=== PATIENT | female | born 1975 | race Caucasian/White ===

== ENCOUNTER 2022-01-29 15:19 | Outpatient (CLI) | payer OTHER, SELFPAY ==
[2022-01-29 12:24] LABS: Chloride* 104 mmol/L (96-114); Potassium* 4.8 mmol/L (3.6-5.1); Sodium* 140 mmol/L (135-149)
[2022-01-29 12:26] LABS: Bilirubin Total* 0.4 mg/dL (0.1-1.5); Carbon Dioxide* 31 mmol/L (20-32); Cholesterol* 206 mg/dL (90-199); Creatinine* 0.9 mg/dL (0.5-1.5); Estimated Glomerular Filt Rate 81 ml/min; Total Protein* 6.5 g/dL (6.0-8.3)
[2022-01-29 12:27] LABS: Alanine Aminotransferase* 13 U/L (4-35); Alkaline Phosphatase* 56 U/L (40-150); Aspartate Amino Transferase* 23 U/L (12-35); Blood Urea Nitrogen* 16 mg/dL (5-24); Calcium* 9.1 mg/dL (8.4-10.6); Glucose* 77 mg/dL (60-115); HDL Cholesterol* 59 mg/dL (>=50); LDL Cholesterol Calculated 129 mg/dL (<100); Triglycerides* 90 mg/dL (40-149)
== END 2022-01-29 15:20 | disposition home or self-care (01) ==
PROVIDERS: PCP Physician Assistant Medical; Visit Provider Physician Assistant Medical
DX: E03.9 Hypothyroidism, unspecified (principal); I10 Essential (primary) hypertension
CPT/HCPCS: 80053; 80061; 84443

== ENCOUNTER 2022-05-13 15:06 | Outpatient (CLI) | payer OTHER, SELFPAY ==
--- NOTE | 2022-05-13 15:30 | MR_ITS ---
[address] [address] Phone:?[phone] Fax:?[phone] Referring Physician Information: Rodriguez Rivers M.D. [address] [facility] [address] Phone:?[phone] Fax:?[phone] Patient:Federico Roca D.O.B:?1975 Sex:?Female Phone:?[phone] [facility] MRN:?[id number] Exam Date:?05/13/2022 ? EXAM: MRI OF THE LEFT SHOULDER CLINICAL INFORMATION: The patient is a 46-year-old with left shoulder pain. Evaluate for rotator cuff tear. PRIOR SURGERY: None reported. COMPARISON STUDIES: There are no prior studies available for comparison. TECHNICAL INFORMATION: Using a 1.5T MR scanner and a localizing shoulder surface coil: 3.0 mm?coronal obliques: PD, T2, STIR 3.0 mm?sagittal obliques: PD, T2 3.0 mm?axials: PD, T2 FINDINGS: Articular/Extraarticular collections: Effusion: Mild to moderate. Subacromial/subdeltoid: Mild to moderate fluid is seen within the subacromial/subdeltoid bursa, in keeping with changes of bursitis. Subcoracoid: No evidence for bursitis. Osseous structures: Proximal humerus: Cortical irregularity can be seen involving the greater tuberosity region with mild subcortical cystic change. The findings are in keeping with the rotator cuff pathology discussed below. There is no evidence for greater or lesser tuberosity fracture. No Hill-Sachs or reverse Hill-Sachs lesion is identified. Glenoid: No acute bony abnormality of the glenoid fossa or glenoid neck can be seen. Acromioclavicular joint: Mild to moderate changes of acromioclavicular joint arthrosis are present. Coracoacromial arch: Acromion morphology: Type II. No evidence for os acromiale. Acromiohumeral space: Mildly narrowed. Coracohumeral space: Mildly narrowed. Rotator cuff and deltoid: Supraspinatus: Moderate changes of supraspinatus tendinosis are present. There is a superimposed full-thickness tear of the anterior and distal tendon fibers seen on sagittal series 8 image 6 and on coronal series 6 image 8. The area of tearing measures 10 mm in mediolateral dimension and 11 mm in anteroposterior dimension. No atrophic changes of the supraspinatus muscle belly are identified. Infraspinatus: Moderate infraspinatus tendinosis can be seen. There is no evidence for full or partial-thickness tearing. No atrophic changes of the infraspinatus muscle belly are present. Teres minor: No evidence for tendinosis, tearing, or associated muscle belly atrophy. Subscapularis: Moderate subscapularis tendinosis can be seen. There is no evidence for full or partial-thickness tearing. No atrophic changes of the subscapularis muscle belly are noted. Deltoid: No evidence for strain or tearing. Biceps tendon: The intra-articular and biceps sulcus portions of the biceps tendon are normal. There is no evidence for rupture, dislocation, or subluxation. Glenohumeral joint and labrum: Articular Cartilage: Chondromalacia and chondral thinning along the articular surfaces of the glenohumeral articulation can be seen. No osteoarthritic changes are identified. Labrum: The anterior, posterior, superior, and inferior portions of the labrum appear intact. No evidence for paralabral ganglion cyst formation can be seen. Capsular Soft Tissues: Nonspecific thickening of the capsular structures of the glenohumeral articulation can be seen in the region of the axillary recess and rotator cuff interval. The findings may relate to changes of adhesive capsulitis. CONCLUSION: 1. Moderate supraspinatus, infraspinatus, and subscapularis tendinosis with superimposed full-thickness tearing of the anterior and distal supraspinatus tendon fibers as described above. 2. Mild to moderate changes of acromioclavicular joint arthrosis. 3. No definite injuries to the glenoid labrum or long head of the biceps can be seen. 4. Mild to moderate glenohumeral joint effusion and mild to moderate subacromial/subdeltoid bursitis. 5. Chondromalacia and chondral thinning along the articular surfaces of the glenohumeral articulation. 6. Nonspecific capsular thickening, possibly related to adhesive capsulitis. AEC Electronically signed on 05/14/2022 8:08:00 AM by Kofi Parrish M.D.
== END 2022-05-13 15:07 | disposition home or self-care (01) ==
LOC: MRI 15:09
PROVIDERS: PCP Physician Assistant Medical; Visit Provider Orthopaedic Surgery Sports Medicine
DX: M25.512 Pain in left shoulder (principal); M75.102 Unspecified rotator cuff tear or rupture of left shoulder, not specified as traumatic; M19.012 Primary osteoarthritis, left shoulder; M25.412 Effusion, left shoulder; M94.212 Chondromalacia, left shoulder
CPT/HCPCS: 73221

== ENCOUNTER 2022-06-16 08:16 | Day surgery (SDC) | payer OTHER, SELFPAY ==
[2022-06-16] VITALS (15 sets, daily range): BP systolic 107–138; BP diastolic 69–100; PULSE 7–84; RESP 16–20; TEMP 36.1–36.3; O2SAT 89–98; BMI 32.7
[2022-06-16] MEDS: LACTATED RINGERS 1000 ML 1,000 ML 100 ML IV (08:20)
[2022-06-16] MEDS: SODIUM CHLORIDE 0.9 % (FLUSH) 10 ML SYRINGE IVF (09:02)
--- NOTE | 2022-06-16 09:40 | SUR.PREOP ---
TIME?OUT:?0940 PT/RN/MDA?VERIFICATION?OF?SURGICAL?SITE,?PROCEDURE,?AND?CONSENT OBTAINED?PRIOR?TO?INVASIVE?PROCEDURE.
[2022-06-16] MEDS: fentaNYL 100 MCG/2 ML inj IVP (09:41)
[2022-06-16] MEDS: MIDAZOLAM HCL 1 MG/ML inj IVP (09:41)
--- NOTE | 2022-06-16 09:45 | P.NB_ITS ---
Nerve Block Nerve Block Time Seen by Provider: 09:44 Date Seen: 06/16/22 Type of block requested by surgeon for post-operative analgesia: supraclavicular Side: left Time out performed: Yes Verification of patient name: Yes Verification of date of : Yes Site marking: site marked Name of person performing procedure: Adrian Assistants, if any: Maycol Continuous monitoring Was continuous monitoring of O2 sat, B/P, monitoring and evaluation advisor, recorded every 15 minutes?: Yes Procedure Checklist: sterile prep, needles and gloves Ultrasound guided. Images saved: Yes Medications given in 5ml increments after negative aspiration: Ropivicaine %: 0.5 mL: 20 Needle gauge: 22 Decadron (mg): 10 Precedex (mcg): 25 Patient tolerated procedure well: Yes Block Charges Block Charge (with Pro Fee): Brachial Plexus Use of Ultrasound Machine for Block: Yes- US Guidance/pain block
--- NOTE | 2022-06-16 09:46 | W.ANESCHARGE ---
Anesthesia Charges Start Date/Time Anesthesia Start Date: 06/16/22 Anesthesia Start Time: 09:56 Stop Date/Time Anesthesia Stop Date: 06/16/22 Anesthesia Stop Time: 12:28
[2022-06-16] MEDS: CEFAZOLIN 2 GM in 0.9 % SODIUM CHLORIDE Mini-bag 100 ML IVPB (10:47)
--- NOTE | 2022-06-16 12:06 | PM.ORPRC ---
Procedure Note Date of procedure: 06/16/22 Procedure: PREOPERATIVE DIAGNOSES: 1. Left shoulder rotator cuff tear. 2. Left shoulder subacromial impingement syndrome. POSTOPERATIVE DIAGNOSES: 1. Left shoulder rotator cuff tear - upper border subscapularis, full-thickness supraspinatus crescent type tear 2. Left shoulder AC degenerative joint disease, primary, moderate 3. Left shoulder anterior and superior degenerative labral fraying and tearing 4. Left shoulder subacromial impingement syndrome. NAME OF OPERATION: 1. Left shoulder arthroscopic rotator cuff repair. 2. Left shoulder arthroscopic distal clavicle excision 3. Left shoulder arthroscopic limited glenohumeral debridement 4. Left shoulder arthroscopic bursectomy, subacromial decompression/partial acromioplasty. SURGEON: Rodriguez Rivers MD STUDENT NURSE: David Levin PA-C. Of note, a skilled insurance sales assistant was critical for this case to aide in patient positioning, suture manipulation, arm positioning, instrument positioning, and closure. ANESTHESIA: General plus preoperative supraclavicular block. EBL: 25 mL IMPLANTS: Arthrex 4.75 mm BioComposite SwiveLock suture anchor (x1); 2.6 mm knotless FiberTak RC (x2); 5.5 mm BioComposite SwiveLock suture anchor (x2) COMPLICATIONS: None evident INDICATIONS: The patient is a pleasant, 47-year-old female who has experienced left shoulder pain that has been increasing in recent time. Physical exam and imaging were consistent with a rotator cuff tear. Given their findings, as well as the weakness and pain, and inadequate response to nonoperative management, recommendation was made for surgery. FINDINGS: Exam under anesthesia revealed stable shoulder with excellent range of motion. The diagnostic arthroscopy revealed relatively healthy chondral surfaces of the glenohumeral joint. The Subscapularis tendon was torn from its upper border with mild retraction. The long head of the biceps tendon was intact. The superior rotator cuff tendon was found to be torn full-thickness through the entire supraspinatus with a crescent type tear. The labrum was degeneratively frayed in the anterior and superior aspects. No loose bodies were identified within the pouch or subscapularis recess. PROCEDURE: Following a thorough discussion of risks, benefits, and alternatives, consent was obtained and the left shoulder was marked. The patient was brought to the operating room and placed supine on the operating table. Induction of anesthesia was completed after preoperative supraclavicular block was administered in preop holding. Appropriate time out was performed identifying proper patient, site, and procedure. 2 g IV Ancef was administered within 1 hour of incision preoperatively. The left upper extremity was prepped and draped in the appropriate sterile fashion using ChloraPrep prep. This was after the patient was positioned in the beach chair with their head in neutral alignment and all bony prominences well padded. The shoulder was insufflated with 20mL of normal saline via an 18g spinal needle from a posterior approach. An 11 blade skin incision allowed a blunt trochar to be inserted and diagnostic arthroscopy to be performed with the findings as noted above. An anterior portal was established with an outside in technique. This allowed the probe to be inserted and confirm the diagnostic arthroscopic findings. The shaver was then inserted and allowed debridement of the anterior and superior labrum. Following this, the upper border subscapularis was repaired after debriding the lesser tuberosity with the shaver and [place] cautery. Subscapularis was captured in horizontal mattress fashion with a fiber tape suture. The tails were brought to a single anchor in the lesser tuberosity with excellent reapproximation of the subscap tendon and good excursion/tension. Thereafter, the subacromial space was entered. Here, a complete bursectomy and partial acromioplasty/subacromial decompression was performed with a combination of radiofrequency ablator, the shaver, and a 5.5 mm bur. Additionally, distal clavicle excision was performed with the bur. 8 mm of distal clavicle was resected based on the width of our bur. Further inspection of the supraspinatus and infraspinatus rotator cuff was performed. This identified the tear as noted above. The margins of the tear were debrided, and the greater tuberosity was debrided with a combination of the apollo cautery, shaver, and bur on reverse setting. [After gentle decortication, a speed bridge configuration with a knotless medial max was engaged. 2 medial FiberTak RC anchors were placed and the sutures were passed with a fiber link. The tail from each of the tapes were then brought to a lateral row anchor. Finally, the knotless mechanism was completed with final tensioning on the medial footprint compression location with excellent reapproximation of the rotator cuff to the greater tuberosity. Prior to anchor operator and truck driver removal, the eyelet sutures were tugged on for each anchor and found that the anchor had excellent stability within the bone. The shoulder was placed through range of motion and found to be stable. The rotator cuff was re-probed and found to be stable. Instruments were removed. Excess fluid was drained, closure performed with 4-0 Monocryl and Steri-Strips. Dressings were applied. Sling was applied. The patient was awoken from anesthesia and transferred to the PACU in stable condition. A skilled insurance sales assistant was critical for this case to aid in patient positioning, limb positioning, skill to manipulate arthroscopic instruments and camera, suture management, patient safety, and closure. PLAN: 1. Elbow, forearm, wrist and digit range of motion of operative extremity as tolerated. 2. Encouraged ice. 3. Percocet for pain as needed. 4. Sling at all times except for ROM and showering. 5. Follow up with PA visit in 1-2 weeks for wound check. Initiate physical therapy following that visit for passive range of motion. Initiate active assisted range of motion at 3 weeks. May do pendulums now.
--- NOTE | 2022-06-16 13:30 | W.ANESCHARGE ---
Anesthesia Charges Start Date/Time Anesthesia Start Date: 06/16/22 Anesthesia Start Time: 09:56 Stop Date/Time Anesthesia Stop Date: 06/16/22 Anesthesia Stop Time: 12:28
== END 2022-06-16 14:06 | disposition home or self-care (01) ==
PROVIDERS: PCP Physician Assistant Medical; Visit Provider Orthopaedic Surgery Sports Medicine
PROC: (CPT 29805; principal; 2022-06-16 09:30)
DX: M75.122 Complete rotator cuff tear or rupture of left shoulder, not specified as traumatic (principal); M75.42 Impingement syndrome of left shoulder; M19.012 Primary osteoarthritis, left shoulder; S43.432A Superior glenoid labrum lesion of left shoulder, initial encounter; G89.18 Other acute postprocedural pain
CPT/HCPCS: 29827; 29826; 29822; 29824; 01630; 64415; 76942; C1713; J0330; J0690; J1100; J2250; J2405; J2704; J2795; J3010; J7120; L3670

== ENCOUNTER 2023-06-06 09:08 | Outpatient (CLI) | payer OTHER, SELFPAY ==
--- OUTSIDE RECORDS SUMMARY | 2023-06-08 11:30 | XMS_ITS | Clinical Summary ---
Author Name Unknown Organization [facility] Address [place], [place] [address] Care Team Providers Care Support Coordinator Name Role Phone Brandy Webster KILO Primary Care Provider [phone] Allergies Active Allergy Reactions Criticality Noted Date Comments Ranitidine 12/16/2005 Medications Medication Sig Dispensed Refills Start Date End Date Status omeprazole (PRILOSEC) 20 mg Delayed-Release capsule Take 1 capsule by mouth 2 times daily before meals. 0 09/25/2015 Active hydroCHLOROthiazide 12.5 mg tablet Take 12.5 mg by mouth once daily. 3 09/09/2018 Active levothyroxine (SYNTHROID) 75 mcg tablet Take 75 mcg by mouth before breakfast. 2 08/12/2018 Active losartan (COZAAR) 100 mg tablet Take 100 mg by mouth once daily. 3 09/11/2018 Active metoprolol succinate (TOPROL XL) 25 mg Sustained-Release tablet Take 25 mg by mouth once daily. 1 09/22/2018 Active VIIBRYD 40 mg tablet Take 40 mg by mouth once daily. 0 08/21/2018 Active zolpidem (AMBIEN) 10 mg tablet Take 5-10 mg by mouth at bedtime if needed. 0 2018 Active hydrOXYzine HCl (ATARAX) 25 mg tablet Take 25-50 mg by mouth every 6 hours if needed for Anxiety. Active polyethylene glycol (MIRALAX) 17 g powder for solutionIndications:Co nstipation, unspecified constipation type Take 17 g by mouth once daily. 0 10/02/2018 Active buPROPion (WELLBUTRIN XL) 300 mg Extended-Release tabletIndications:MDD (major depressive disorder), recurrent severe, without psychosis (HC) Take 1 tablet by mouth once daily. 30 tablet 10/06/2018 Active Active Problems Problem Noted Date Diagnosed Date MDD (major depressive disord er), recurrent severe, without psychosis 10/03/2018 Gastroesophageal reflux disease with esophagitis 09/26/2015 Overview: EGD 09/2015 reflux Tobacco use disorder 08/03/2006 Obesity, unspecified 01/03/2006 CONTRACEPTIVE PRESCRIPTION, ORAL AGENT 1 Resolved Problems Problem Noted Date Diagnosed Date Resolved Date DISORDER, TOBACCO USE 02/01/20012006 Immunizations Name Administration Dates Next Due Td (Age >=7 Years) 09/14/1996 Family History Medical History Relation Name Comments Thyroid Disease Brother Alcohol/Drug Father etoh in past Allergies Mother Asthma Mother Cancer Mother mother: Non Hod gkin's lymphoma~ Diabetes Mother Thyroid Disease Mother Hypertension Paternal Grandfather Relation Name Status Comments Brother Father Mother Paternal Grandfather Social History Tobacco Use Types Packs/Day Years Used Date Smoking Tobacco: Every Day Cigarettes 0.3 24.7 Started: 10/02/1998 Smokeless Tobacco: Never Tobacco Cessation:Ready to Q uit: No; Counseling Given: No Alcohol Use Standard Drinks/Week Comments Yes 2 (1 standard drink = 0.6 oz pur e alcohol) once monthly Social Connections Answer Date Recorded Frequency of Communication with Friends and Fami ly Not on file 02/14/2021 Financial Resource Strain Answer Date R ecorded Difficulty of Paying Living Expenses Not on file 02/14/2021 Difficulty of Paying Living Expenses Not on file 02/14/2021 Sex and Gender Information Value Date Recorded Sex Assigned at Not on file Gender Identity Not on file Sexual Orientation Not on file Obstetrics History Para Term AB IAB SAB Ectopic Multiple Livin g Live Births 2 1 1 0 1 1 0 0 0 1 Date Outcome GA Total Labor Labor/2nd/3rd Weight Sex Delivery Anes PTL Avelina A1 A5 Name Cl in IAB Term Last Filed Vital Signs Vital Sign Reading Time Taken Comments Blood Pressure 127/91 05/28/2020 12:53 PM CDT Pulse 64 05/28/2020 12:53 PM CDT Temperature 36.5 ??C (97.7 ??F) 05/28/2020 12:53 PM C DT Respiratory Rate 18 05/28/2020 12:53 PM CDT Oxygen Saturation 98% 05/28/2020 12:53 PM CDT Inhaled Oxygen Concentration - - Weight 74.8 kg (165 lb) 05/28/2020 12:53 PM CDT Height 171.5 cm (5' 7.5) 05/28/2020 12:53 PM CD T Body Mass Index 25.46 05/28/2020 12:53 PM CDT Plan of Treatment Health Maintenance Due Date Last Done Comments Tdap 1988 Depression screening for age 12+ 1989 HIV for age 15-65 1992 Hepatitis C screening for age 18-79 06/06/1995 Tetanus booster 09/14/2006 09/14/1996 BMI (ht and wt on same day) for age 18+ 09/24/2016 09/25/2015 Pap test for age 21-65 07/26/2020 8, 07/26/2017, 01/03/2006, Additional history exists Colonoscopy through age 75 2022 Lipids for age 45-75 2022 04/02/2002, 04/02/19 03 Mammogram for age 45-75 2022 COVID-19 vaccine series (2022-24 season) 2022 Influenza for age 9-49 10/16/2023 Pneumococcal series for age 6-64 Aged Out No longer eligible based on patient's age to complete this topic Procedures Procedure Name Priority Date/Time Associated Diagnosis Comments MOTORCOACH DRIVER THIN PREP PAP SCREEN IMAGED Routine 07/26/2017 12:00 PM CDT CHOLESTEROL,TOTAL Routine 04/02/2002 8:0 5 AM MANAGER REPORTING from Last 3 Months or Most Recently Relevant to Health Maintenance Results * MOTORCOACH DRIVER THIN PREP PAP SCREEN IMAGED (07/26/2017 12:00 PM CDT) Case Report Gynecologic Cytology Report ? Case: [id number] ? Authorizing Provider: ??Brandy Webster PA-C ?Collected: ? 07/26/2017 1200 ? First Screen: ?Lois Pat ?Received: ?07/28/2017 1148 ? Specimen: ?MOTORCOACH DRIVER ThinPrep Vial Screening, Vaginal Cuff ? 08/04/2017 11:38 AM [facility] INTERPRETATION/ RESULT NEGATIVE FOR INTRAEPITHELIAL LESION OR MALIGNANCY (NIL) (none) 08/04/2017 11:38 AM [facility] IMEN ADEQUACY Satisfactory for evaluation No endocervical component seen 08/04/2017 11:38 AM [facility] HPV REQUEST HPV and PAP 08/04/2017 11:38 AM [facility] Last Pap Date 04/02/2010 08/04/2017 11:38 AM [facility] Last Pap Result NIL 8 11:38 AM [facility] Automated Review Successful 08/04/2017 11:38 AM [facility] Comment:Specimen processed s uccessfully by automated head tennis professional device, ThinPrep Imaging System, [employer] ANCILLARY TESTING MOTORCOACH DRIVER HPV Ordered, Please see separate report 08/04/2017 11:38 AM [facility] Note The pap test is a screening technique, not a diagnostic procedure. ??It is used primarily to screen for squamous cancers and precursor lesions. ??Published studies have shown that it is subject to both false negative and false positive results. ??The pap test should not be used as the sole means to diagnose or exclude pre-malignant and malignant lesions. Cytology is screened and interpreted at [facility] - [address], [place] [address] and [facility] - [address]; [place] [address] and [facility] - [address]; [place] [address] and [facility] [address]; [place] [address] 08/04/2017 11:38 AM CDT [facility] Other (Vaginal Cuff) 07/26/2017 12:00 PM CDT 07/28/2017 11:48 AM CDT Brandy Webster PA-C PATHOLOGY/CYTOLOGY [facility] [address] [place] [address], [place] * CHOLESTEROL,TOTAL (04/02/2002 8:05 AM MANAGER REPORTING) CHOLESTEROL,TOT AL 167 110 - 199 mg/dL 04/02/2002 8:05 AM MANAGER REPORTING Narrative 07/25/2003 5:06 PM CDT Ordered by an unspecified provider. Other Clinical Staff CHEMISTRY from Last 3 Months or Most Recently Relevant to Health Maintenance Advance Directives * Full Code (Latest Code Status on File) Date Activated Date Inactivated Comments 10/02/2018 1:23 PM 10/06/2018 1:15 PM Question Answer Comments Code Status Discussion: Not Discussed * Full Code Date Activated Date Inactivated Comments 10/01/2018 5:37 AM 10/02/2018 12:05 PM Care Teams Support Coordinator Relationship Specialty Start Date End Date Brandy Webster PA-C [address] [place] [address] PCP - General Physician Decal Applier 09/25/15
--- OUTSIDE RECORDS SUMMARY | 2023-06-08 11:30 | XMS_ITS | Referral Summary ---
Author Name Unknown Organization [facility] Address [address] [place] [address] Care Team Providers Care Cemetery Manager Name Role Phone No Ref-Primary, Physician Primary Care Provider Allergies Active Allergy Reactions Criticality Noted Date Comments Ranitidine 12/16/2005 Medications No known medications Active Problems No known active problems Social History Tobacco Use Types Packs/Day Years Used Date Smoking Tobacco: Former Smokeless Tobacco: Never Tobacco Cessation:Counseling Given: Yes Sex and Gender Information Value Date Recorded Sex Assigned at Not on file Gender Identity Not on file Sexual Orientation Not on file Last Filed Vital Signs Vital Sign Reading Time Taken Comments Blood Pressure - - Pulse - - Temperature - - Respiratory Rate 14 03/18/2017 11:29 AM BOAT ENGINE MECHANIC Oxygen Saturation - - Inhaled Oxygen Concentration - - Weight 99.8 kg (220 lb) 03/18/2017 11:29 AM BOAT ENGINE MECHANIC Height 170.2 cm (5' 7) 03/18/2017 11:29 AM BOAT ENGINE MECHANIC Body Mass Index 34.46 03/18/2017 11:29 AM BOAT ENGINE MECHANIC Plan of Treatment Not on file Care Teams Cemetery Manager Relationship Specialty Start Date End Date No Ref-Primary, Physician PCP - General 03/11/17
--- OUTSIDE RECORDS SUMMARY | 2023-06-08 11:30 | XMS_ITS | Clinical Summary ---
Author Name Unknown Organization [facility] Address [address] [place] [id number] Care Team Providers Care Gas Appliance Servicer Name Role Phone No Ref-Primary, Physician Primary [...] - Respiratory Rate 14 03/18/2017 11:29 AM SHOE SEWING MACHINE OPERATOR AND TENDER Oxygen Saturation - - Inhaled Oxygen Concentration - - Weight 99.8 kg (220 lb) 03/18/2017 11:29 AM SHOE SEWING MACHINE OPERATOR AND TENDER Height 170.2 cm (5' 7) 03/18/2017 11:29 AM SHOE SEWING MACHINE OPERATOR AND TENDER Body Mass Index 34.46 03/18/2017 11:29 AM SHOE SEWING MACHINE OPERATOR AND TENDER Plan of Treatment Not on file Care Teams Gas Appliance Servicer Relationship Specialty Start Date End Date No Ref-Primary, Physician PCP - General 03/11/17
== END 2023-06-06 09:09 | disposition home or self-care (01) ==
LOC: NFLDREF 06-08 11:28
PROVIDERS: PCP Physician Assistant Medical; Referring Provider Physician Assistant Medical; Visit Provider Physician Assistant Medical
DX: E03.9 Hypothyroidism, unspecified (principal); I10 Essential (primary) hypertension; E66.9 Obesity, unspecified; Z13.220 Encounter for screening for lipoid disorders
CPT/HCPCS: 80053; 80061; 84443

== ENCOUNTER 2023-06-20 09:35 | Outpatient (CLI) | payer OTHER, SELFPAY ==
--- OUTSIDE RECORDS SUMMARY | 2023-06-20 09:37 | XMS_ITS | Clinical Summary ---
Author Name Unknown Organization [facility] Address [address] [place] [address] Care Team Providers Care Education Manager Name Role Phone No Ref-Primary, Physician [...] - Respiratory Rate 14 03/18/2017 11:29 AM RUBBER COVERING MACHINE OPERATOR Oxygen Saturation - - Inhaled Oxygen Concentration - - Weight 99.8 kg (220 lb) 03/18/2017 11:29 AM RUBBER COVERING MACHINE OPERATOR Height 170.2 cm (5' 7) 03/18/2017 11:29 AM RUBBER COVERING MACHINE OPERATOR Body Mass Index 34.46 03/18/2017 11:29 AM RUBBER COVERING MACHINE OPERATOR Plan of Treatment Not on file Care Teams Education Manager Relationship Specialty Start Date End Date No Ref-Primary, Physician PCP - General 03/11/17
--- OUTSIDE RECORDS SUMMARY | 2023-06-20 09:37 | XMS_ITS | Clinical Summary ---
Author Name Unknown Organization [facility] Address [place], [place] [address] Care Team Providers Care Crook Operator Name Role Phone Brandy Webster KILO Primary Care Provider [phone] Allergies Active Allergy Reactions Criticality Noted Date [...] Procedure Name Priority Date/Time Associated Diagnosis Comments DAYCARE TEACHER THIN PREP PAP SCREEN IMAGED Routine 07/26/2017 12:00 PM CDT CHOLESTEROL,TOTAL Routine 04/02/2002 8:0 5 AM HEALTHCARE REPRESENTATIVE from Last 3 Months or Most Recently Relevant to Health Maintenance Results * DAYCARE TEACHER THIN PREP PAP SCREEN IMAGED (07/26/2017 12:00 PM CDT) Case Report Gynecologic Cytology Report ? Case: [id number] ? Authorizing Provider: ??Brandy Webster PA-C ?Collected: ? 07/26/2017 1200 ? First Screen: ?Lois Pat ?Received: ?07/28/2017 1148 ? Specimen: ?DAYCARE TEACHER ThinPrep Vial Screening, Vaginal Cuff ? 08/04/2017 11:38 AM [facility] INTERPRETATION/ RESULT NEGATIVE FOR INTRAEPITHELIAL LESION OR MALIGNANCY (NIL) (none) 08/04/2017 11:38 AM [facility] IMEN ADEQUACY Satisfactory for evaluation No endocervical component seen 08/04/2017 11:38 AM [facility] HPV REQUEST HPV and PAP 08/04/2017 11:38 AM [facility] Last Pap Date 04/02/2010 08/04/2017 11:38 AM [facility] Last Pap Result NIL 8 11:38 AM [facility] Automated Review Successful 08/04/2017 11:38 AM [facility] Comment:Specimen processed s uccessfully by automated funeral home location manager device, ThinPrep Imaging System, [employer] ANCILLARY TESTING DAYCARE TEACHER HPV Ordered, Please see separate report 08/04/2017 11:38 AM [facility] Note The pap test is a [...] - [address], [place] [address] and [facility] - [address]; [place] [address] and [facility] - [address]; [place] [address] and [facility] [address]; [place] [address] 08/04/2017 11:38 AM CDT [facility] Other (Vaginal Cuff) 07/26/2017 12:00 PM CDT 07/28/2017 11:48 AM CDT Brandy Webster PA-C PATHOLOGY/CYTOLOGY [facility] [address] [place] [address], [place] * CHOLESTEROL,TOTAL (04/02/2002 8:05 AM HEALTHCARE REPRESENTATIVE) CHOLESTEROL,TOT AL 167 110 - 199 mg/dL 04/02/2002 8:05 AM HEALTHCARE REPRESENTATIVE Narrative 07/25/2003 5:06 PM CDT Ordered by [...] 5:37 AM 10/02/2018 12:05 PM Care Teams Crook Operator Relationship Specialty Start Date End Date Brandy Webster PA-C [address] [place] [address] PCP - General Physician Care Trainer 09/25/15
--- OUTSIDE RECORDS SUMMARY | 2023-06-20 09:37 | XMS_ITS | Referral Summary ---
Author Name Unknown Organization [facility] Address [address] [place] [address] Care Team Providers Care Fitness Worker Name Role Phone No Ref-Primary, Physician Primary [...] - Respiratory Rate 14 03/18/2017 11:29 AM HAND EXPANSION ENVELOPE MAKER Oxygen Saturation - - Inhaled Oxygen Concentration - - Weight 99.8 kg (220 lb) 03/18/2017 11:29 AM HAND EXPANSION ENVELOPE MAKER Height 170.2 cm (5' 7) 03/18/2017 11:29 AM HAND EXPANSION ENVELOPE MAKER Body Mass Index 34.46 03/18/2017 11:29 AM HAND EXPANSION ENVELOPE MAKER Plan of Treatment Not on file Care Teams Fitness Worker Relationship Specialty Start Date End Date No Ref-Primary, Physician PCP - General 03/11/17
--- NOTE | 2023-06-20 09:45 | MM_ITS ---
Patient: CECILIA MATHEW Facility:?[facility] Patient ID:?[id number] Site Patient ID:?[id number]. Site :?[id number] Study:?XRay-Breast Bilateral 3D W/CAD-06/20/2023 10:05:56 AM Ordering Physician:Donnie Final Report: BILATERAL SCREENING MAMMOGRAM WITH COMPUTER-AIDED DETECTION AND TOMOSYNTHESIS TECHNIQUE: CC and MLO views were obtained. These mammographic images have been obtained using full-field digital technique. These mammographic images were interpreted with the benefit of computer-aided detection. Breast Tomosynthesis was used in this interpretation. COMPARISON FILM: 12/28/17, 10/17/12. FINDINGS: There are scattered areas of fibroglandular density IMPRESSION: There is no radiographic evidence for malignancy. ASSESSMENT: BI-RADS Category 1: Negative RECOMMENDATION: Routine screening mammogram in 1 year. A lay language report of this examination will be provided to the patient. Edmar Yoder M.D. Diagnostic Radiologist [email or web address] ASIA/[email or web address] Transcribed: 12:38 p.stefano red/Dictated by: Edmar Yoder MD @ 06/21/2023 10:55:00 AM Signed by:?Edmar Yoder MD @06/21/2023 1:51:20 PM (Electronic Signature)
== END 2023-06-20 09:36 | disposition home or self-care (01) ==
LOC: MAMMO 09:35
PROVIDERS: PCP Physician Assistant Medical; Visit Provider Physician Assistant Medical
DX: Z12.31 Encounter for screening mammogram for malignant neoplasm of breast (principal)
CPT/HCPCS: 77063; 77067